=== PATIENT | male | born 1950 | race Caucasian/White ===

== ENCOUNTER 2018-07-26 22:55 | Emergency (ER) | payer MEDICARE, OTHER ==
[2018-07-26] MEDS ORDERED: MIDAZOLAM INJ 2 MG/2 ML VIAL ONE (23:00)
[2018-07-26] MEDS ORDERED: PROPOFOL 200 MG/20 ML VIAL IV ONE (23:00)
[2018-07-26] MEDS ORDERED: SODIUM CHLORIDE 0.9% 50 ML VIAL ONE (23:00)
[2018-07-26] MEDS ORDERED: PHENYLEPHRINE INJ 1ML 10 MG/ML VIAL ONE (23:00)
[2018-07-26] MEDS ORDERED: fentaNYL CITRATE INJ 50 MCG/ML AMP ONE (23:00)
[2018-07-26] MEDS ORDERED: KETAMINE HCL 100 MG/ML VIAL ONE (23:00)
[2018-07-26] MEDS ORDERED: LIDOCAINE 1% 10 ML VIAL INJ ONE (23:00)
[2018-07-26] MEDS ORDERED: MORPHINE SULFATE INJ 10 MG/ML VIAL IV ONE (23:16)
[2018-07-26] MEDS ORDERED: SODIUM CHLORIDE 0.9% 1000ML 1,000 ML IVS ONE (23:16)
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
[2018-07-27] MEDS ORDERED: POVIDONE IODINE 10 % 15 ML UD TOP ONE (01:12)
--- NOTE | 2018-07-27 01:48 | RAD ---
CHEST 07/27/2018 CLINICAL HISTORY: Tube placement. COMPARISON: Chest 08/05/2018 at 2322 hours. TECHNIQUE: AP Chest. FINDINGS: Right apical chest tube is in place. Previously noted right pneumothorax is no longer identified. There is scattered bilateral lower lobe atelectasis. There may be a trace amount of left pleural fluid. The heart is mildly enlarged. Normal pulmonary vascularity. Left subclavian Mediport is stable at the junction of the superior vena cava and right atrium. There is a neurostimulator device positioned over the right hemithorax and right neck. IMPRESSION: 1. Right apical chest tube placed with resolution of the right pneumothorax. 2. Bilateral lower lobe atelectasis. Possible trace left pleural fluid. Electronically signed by: Sangita Hussein DO 07/27/2018 1:47 AM [facility]
[2018-07-27] MEDS ORDERED: SODIUM CHLORIDE 0.9% 1000ML 1,000 ML IVS ONE (01:57)
[2018-07-27] MEDS ORDERED: MORPHINE SULFATE INJ 10 MG/ML VIAL ONE (02:12)
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
[2018-07-27 02:29] VITALS: BP 103/73; TEMP 97.9; O2SAT 96
== END 2018-07-27 02:48 | disposition home or self-care (01) ==
LOC: ER 22:55
DX: J93.9 Pneumothorax, unspecified (principal); S60.221A Contusion of right hand, initial encounter; C91.01 Acute lymphoblastic leukemia, in remission; R07.1 Chest pain on breathing; R00.0 Tachycardia, unspecified; I48.91 Unspecified atrial fibrillation; I10 Essential (primary) hypertension; Z87.891 Personal history of nicotine dependence; V49.88XA Car occupant (driver) (passenger) injured in other specified transport accidents, initial encounter; Y92.410 Unspecified street and highway as the place of occurrence of the external cause
CPT/HCPCS: 70450; 71045; 71260; 72125; 73130; 74177; 80053; 80320; 83690; 85025; 93005; 94770; A4216; J2250; J2270; J3010; J3490; J7030

== ENCOUNTER 2018-08-18 07:36 | Emergency (ER) | payer MEDICARE, OTHER ==
[2018-08-18] MEDS ORDERED: HYDROcodone 10MG/APAP 325MG 1 EA TAB PO ONE ×2 (07:39→08:05)
[2018-08-18 08:02] VITALS: TEMP 97
[2018-08-18] MEDS ORDERED: fentaNYL CITRATE INJ 50 MCG/ML AMP IV ONE (08:11)
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
[2018-08-18] MEDS ORDERED: SODIUM CHLORIDE 0.9% 1000ML 0 ML ONE (08:26)
[2018-08-18 08:40] VITALS: BP 136/73
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
[2018-08-18] MEDS ORDERED: IPRATROPIUM/ALBUTEROL 3 ML VIAL NEB ONE (08:51)
[2018-08-18] MEDS ORDERED: BACLOFEN 10 MG TAB PO ONE (09:16)
[2018-08-18] MEDS ORDERED: cefTRIAXone SODIUM 2 GM in SODIUM CHL 0.9% 100ML MINI-BAG 100 ML IVPB ONE (09:18)
[2018-08-18 09:27] VITALS: O2SAT 97
[2018-08-18] MEDS ORDERED: MULTIPLE VITAMIN INJ 10 ML, THIAMINE HCL INJ 100 MG in SODIUM CHLORIDE 0.9% 1000ML 1,00... IVS SCH (09:30)
[2018-08-18] MEDS ORDERED: OSELTAMIVIR 75 MG CAP PO ONE (09:40)
[2018-08-18] MEDS ORDERED: SODIUM CHLORIDE 0.9% 1000ML 1,000 ML ONE (09:57)
[2018-08-18] MEDS ORDERED: THIAMINE HCL INJ 100 MG/ML VIAL ONE (09:58)
[2018-08-18] MEDS ORDERED: MULTIPLE VITAMIN 10 ML VIAL ONE (09:58)
== END 2018-08-18 10:33 | disposition home or self-care (01) ==
LOC: ER 07:36
DX: S22.41XD Multiple fractures of ribs, right side, subsequent encounter for fracture with routine healing (principal); I48.91 Unspecified atrial fibrillation; I10 Essential (primary) hypertension; Z85.6 Personal history of leukemia
CPT/HCPCS: 36415; 71045; 80048; 80076; 80320; 82550; 82553; 83605; 84484; 85007; 85025; 85610; 85730; 87040; 94640; J3010; J7620

== ENCOUNTER 2018-09-01 00:19 | Emergency (ER) | payer MEDICARE, OTHER ==
[2018-09-01 00:39] VITALS: BP 92/58; TEMP 97.7; O2SAT 96
[2018-09-01] MEDS ORDERED: ACETAMINOPHEN W/COD #3 TAB 1 EA TAB PO ONE (00:41)
[2018-09-01] MEDS ORDERED: KETOROLAC TROMETHAMINE INJ 30 MG/ML VIAL IM ONE (00:41)
--- NOTE | 2018-09-01 00:45 | ED.PDOC ---
History of Present Illness - General Chief Complaint: Back Pain or Injury Stated Complaint: chronic low pain Time Seen by Provider: 09/01/18 00:27 Source: patient Exam Limitations: no limitations - History of Present Illness Initial Comments: the patient is a 68-year-old male presenting to the emergency room secondary to right lower back pain with associated sciatica. He has had this problem for years but flared up about 24-48 hours ago. No loss of urine. No weakness. Timing/Duration: 24 hours, getting worse Improving Factors: nothing Worsening Factors: nothing Associated Symptoms: denies symptoms Allergies/Adverse Reactions: Allergies NO KNOWN ALLERGY Allergy (Verified 08/18/18 07:46) Home Medications: Ambulatory Orders Acetamin W/Cod #3 Tab [Tylenol w/CODEINE #3] 1 ea PO Q4HR 1 Days #20 tab 08/18 Baclofen 20 mg PO BID #20 tab 08/18/18 Cefuroxime Axetil [Ceftin] 500 mg PO Q12H 7 Days #14 tablet 08/18/18 Acetamin W/Cod #3 Tab [Tylenol w/CODEINE #3] 1 ea PO Q8HR PRN #20 tab 09/01/18 Review of Systems - Review of Systems Constitutional: States: no symptoms reported EENTM: States: no symptoms reported Respiratory: States: no symptoms reported Cardiology: States: no symptoms reported Genitourinary: States: no symptoms reported Musculoskeletal: States: back pain Skin: States: no symptoms reported Neurological: States: see HPI Endocrine: States: no symptoms reported All other Systems: No Change from Baseline Past Medical History (General) - Patient Medical History Hx Seizures: No Hx Stroke: No Hx Dementia: No Hx Asthma: No Hx Cardiac Disorders: Yes - AFib-declined anti coagulation therapy Hx Congestive Heart Failure: No Hx Pacemaker: No Hx Hypertension: Yes Hx Thyroid Disease: Yes Hx Diabetes: No Hx Gastroesophageal Reflux: No Hx Renal Disease: No Hx Cancer: Yes - Leukemia-chronic lymphocytic leukemia x 6 years Hx of HIV: No Hx Hepatitis C: No Hx MRSA: No Surgical History: gastric bypass, other - Vaccination History Hx Tetanus, Diphtheria Vaccination: - unknown Hx Influenza Vaccination: No Hx Pneumococcal Vaccination: No - Social History Hx Tobacco Use: Yes Hx Alcohol Use: Yes Family Medical History - Family History Mother Family History: Unknown Hx Cardiac Disease: Yes - brother-a.fib Hx Family Diabetes: Yes - dad Hx Family Cancer: Yes - mom-lungs,lymphoma;dad-lymphoma Physical Exam - Physical Exam General Appearance: Alert, No apparent distress Eye Exam: bilateral normal Ears, Nose, Throat: hearing grossly normal Neck: full range of motion Respiratory: no respiratory distress, no accessory muscle use Cardiovascular/Chest: normal peripheral pulses, no edema Peripheral Pulses: dorsalis pedis,right: 2+, dorsalis pedis,left: 2+ Rectal Exam: deferred Extremity: no pedal edema Neurologic: physician chief of pathology II-XII nml as tested, alert, normal mood/affect, oriented x 3 Skin Exam: normal color Comments: Vital Signs - 24 hr 09/01/18 00:34 Temperature 97.7 F Respiratory 20 Rate Blood Pressure 92/58 [left] O2 Sat by Pulse 96 Oximetry Progress - Progress Progress: 09/01/18 00:46 the patient is a 68-year-old male presenting with recurrence of chronic right lower back pain with associated sciatica. He was given a dose of Toradol IM and a dose of Tylenol No. 3 orally. He'll be written for Tylenol 3 as an outpatient for as needed use. Topical heat as well as stretching may prove beneficial. Resting on a declined plane may also help symptoms. Steroids were deferred by the patient at this time secondary to healing issues of previous surgery. Blood pressures are moderately low here today. He does need to follow these at home and if his blood pressures are remaining low while taking the pain medications then he may need to reduce his metoprolol by half. Follow-up with primary care doctor next week. ER warnings were given. Departure - Departure Clinical Impression: Low back pain Qualifiers: Chronicity: chronic Back pain laterality: right Sciatica presence: with sciatica Sciatica laterality: sciatica of right side Qualified Code(s): M54.41 - Lumbago with sciatica, right side; G89.29 - Other chronic pain Disposition: Discharge to Home or Self Care Condition: Fair Departure Forms: ED Discharge - Pt. Copy, Patient Portal Self Enrollment Instructions: DI for Back Pain With Sciatica Diet: regular diet Activity: increase activity as tolerated Prescriptions: Acetamin W/Cod #3 Tab [Tylenol w/CODEINE #3] 1 ea PO Q8HR PRN #20 tab PRN Reason: Moderate Pain Home Medications: Ambulatory Orders Acetamin W/Cod #3 Tab [Tylenol w/CODEINE #3] 1 ea PO Q4HR 1 Days #20 tab 08/18/18 Baclofen 20 mg PO BID #20 tab 08/18/18 Cefuroxime Axetil [Ceftin] 500 mg PO Q12H 7 Days #14 tablet 08/18/18 Acetamin W/Cod #3 Tab [Tylenol w/CODEINE #3] 1 ea PO Q8HR PRN #20 tab 09/01/18 Additional Instructions: the patient is a 68-year-old male presenting with recurrence of chronic right lower back pain with associated sciatica. His low back pathology is well documented with a CT scan less than a month ago. No trauma since that time. He was given a dose of Toradol IM and a dose of Tylenol No. 3 orally. He'll be written for Tylenol 3 as an outpatient for as needed use. Topical heat as well as stretching may prove beneficial. Resting on a declined plane may also help symptoms. Steroids were deferred by the patient at this time secondary to healing issues of previous surgery. Blood pressures are moderately low here today. He does need to follow these at home and if his blood pressures are remaining low while taking the pain medications then he may need to reduce his metoprolol by half. Follow-up with primary care doctor next week. ER warnings were given.
== END 2018-09-01 01:09 | disposition home or self-care (01) ==
LOC: ER 00:19
DX: M54.41 Lumbago with sciatica, right side (principal); G89.29 Other chronic pain; I48.91 Unspecified atrial fibrillation; I10 Essential (primary) hypertension; E07.9 Disorder of thyroid, unspecified; Z85.6 Personal history of leukemia; Z87.891 Personal history of nicotine dependence

== ENCOUNTER 2018-09-22 02:26 | Emergency (ER) | payer MEDICARE, OTHER ==
[2018-09-22 02:48] VITALS: TEMP 98.9; O2SAT 98
[2018-09-22] MEDS ORDERED: fentaNYL CITRATE INJ 50 MCG/ML AMP IV ONE (02:57)
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
[2018-09-22] MEDS ORDERED: SODIUM CHLORIDE 0.9% 1000ML 1,000 ML IVS ONE (03:44)
--- NOTE | 2018-09-22 04:01 | CT ---
CLINICAL HISTORY: TRAUMA COMPARISON: July 27, 2018. TECHNIQUE: CT HEAD WITHOUT IV CONTRAST on 09/22/2018 3:07 AM CHIEF ORTHOPTIST This exam was performed according to our departmental dose-optimization program, which includes automated exposure control, adjustment of the mA and/or kV according to patient size and/or use of iterative reconstruction technique. FINDINGS: There is no acute hemorrhage, mass effect or midline shift. There is minimal encephalomalacia in the right posterior occipital lobe which is present previously. There is no hydrocephalus. There is mild diffuse cerebral atrophy. There are mild patchy hypodensities within the periventricular and subcortical white matter, consistent with microangiopathic ischemic changes. The calvarium is intact. Orbits and globes are unremarkable. The paranasal sinuses are clear. Mastoid air cells are clear. IMPRESSION: No acute intracranial findings. Electronically signed by: Lars Rasmussen MD 09/22/2018 3:58 AM CHIEF ORTHOPTIST
--- NOTE | 2018-09-22 04:03 | CT ---
CLINICAL HISTORY: TRAUMA COMPARISON: None. TECHNIQUE: CT CERVICAL SPINE WITHOUT IV CONTRAST on 09/22/2018 3:07 AM CONVERSION WORKER This exam was performed according to our departmental dose-optimization program, which includes automated exposure control, adjustment of the mA and/or kV according to patient size and/or use of iterative reconstruction technique. FINDINGS: There is no acute fracture. Alignment is anatomic. Anterior fusion of C5-6 was performed. There is moderate right foraminal facet arthritis. There is severe narrowing at C6-7 and C7-T1. There is a spinal stimulator the posterior central canal of the upper cervical spine. Vertebral body heights are preserved. Soft tissues are unremarkable. IMPRESSION: No definite acute posttraumatic findings. Electronically signed by: Lasr Rasmussen MD 09/22/2018 4:00 AM CONVERSION WORKER
--- NOTE | 2018-09-22 04:52 | RAD ---
CLINICAL HISTORY: PAIN AFTER FALL COMPARISON: None. TECHNIQUE: XR KNEE 1-2 VIEWS 09/22/2018 12:00 AM WET PAN OPERATOR FINDINGS: There is no fracture. Total knee arthroplasty was performed. Soft tissues are unremarkable. IMPRESSION: No acute osseous findings. Electronically signed by: Lars Rasmussen MD 09/22/2018 4:49 AM WET PAN OPERATOR
--- NOTE | 2018-09-22 04:52 | RAD ---
CLINICAL HISTORY: PAIN AFTER FALL COMPARISON: None. TECHNIQUE: XR KNEE 1-2 VIEWS 09/22/2018 12:00 AM PARCEL POST ORDER CLERK FINDINGS: There is no fracture. Total knee arthroplasty was performed. Soft tissues are unremarkable. IMPRESSION: No acute osseous findings. Electronically signed by: Lars Rasmussen MD 09/22/2018 4:49 AM PARCEL POST ORDER CLERK
[2018-09-22 05:24] VITALS: BP 106/72
== END 2018-09-22 05:24 | disposition home or self-care (01) ==
LOC: ER 02:26
DX: M54.6 Pain in thoracic spine (principal); G89.29 Other chronic pain; C91.90 Lymphoid leukemia, unspecified not having achieved remission; S01.81XA Laceration without foreign body of other part of head, initial encounter; S40.022A Contusion of left upper arm, initial encounter; S40.021A Contusion of right upper arm, initial encounter; I10 Essential (primary) hypertension; I48.91 Unspecified atrial fibrillation; E07.9 Disorder of thyroid, unspecified; Z79.899 Other long term (current) drug therapy; Z87.891 Personal history of nicotine dependence; Z98.84 Bariatric surgery status; Z91.81 History of falling; W19.XXXA Unspecified fall, initial encounter
CPT/HCPCS: 70450; 72125; 73560; 80053; 80320; 83690; 85025; J3010; J7030